=== PATIENT | female | born 1955 | race Caucasian/White ===

== ENCOUNTER → 2024-06-02 13:51 | Outpatient (REF) | payer MEDICARE, OTHER, SELFPAY | LOC: HWRAD 13:51 | PROVIDERS: ATTENDING PHYSICIAN Orthopaedic Surgery; FAMILY PHYSICIAN Nurse Practitioner | DX: M25.512 Pain in left shoulder (principal) | CPT/HCPCS: 73200 ==

== ENCOUNTER → 2024-06-03 10:02 | Outpatient (REF) | payer MEDICARE, OTHER, SELFPAY ==
[2024-06-03 12:09] LABS: % Basophils 0.6 % (0-2); % Eosinophils 1.7 % (0-6); % Immature Granulocytes 0.4 % (0-0.5); % Lymphocytes 18.9 % (20.5-51.1); % Monocytes 8.9 % (1.7-9.3); % Neutrophils 69.5 % (42.2-75.2); Absolute Basophils 0.1 10^3/uL (0-0.2); Absolute Eosinophils 0.1 10^3/uL (0-0.7); Absolute Lymphocytes 1.5 10^3/uL (1.2-3.4); Absolute Monocytes 0.7 10^3/uL (0.1-0.6); Absolute Neutrophils 5.7 10^3/uL (1.4-6.5); Hematocrit 33.8 % (37.0-47.0); Hemoglobin 11.6 g/dL (12.0-16.0); Mean Corp Hgb Conc. 34.3 g/dL (33.0-37.0); Mean Corpuscular Hgb 30.2 pg (27.0-31.0); Mean Platelet Volume 11.6 fL (7.4-10.4); Nucleated Red Blood Cells % 0 %; Platelet Count 246 10^3/uL (130-400); Red Blood Cell Count 3.84 10^6/uL (4.20-5.40); White Blood Cell Count 8.1 10^3/uL (4.8-10.8)
[2024-06-03 12:27] LABS: Blood Urea Nitrogen 20 mg/dl (7-17); Calcium 9.6 mg/dl (8.4-10.2); Carbon Dioxide 26 mmol/L (22-30); Chloride 103 mmol/L (98-107); Glucose 114 mg/dl (70-99); Sodium 136 mmol/L (135-145); eGFR > 60.00
== END ==
LOC: HWLAB 10:02
PROVIDERS: ATTENDING PHYSICIAN Orthopaedic Surgery; FAMILY PHYSICIAN Nurse Practitioner
DX: Z01.818 Encounter for other preprocedural examination (principal)
CPT/HCPCS: 80048; 85025; 93005

== ENCOUNTER 2024-06-08 06:24 | Day surgery (SDC) | payer MEDICARE, OTHER, SELFPAY ==
[2024-06-08] VITALS (8 sets, daily range): BP systolic 126–149; BP diastolic 58–72; BMI 26.4
[2024-06-08] MEDS: MOBIC 15 MG PO (08:13)
[2024-06-08] MEDS: TYLENOL 1000 MG PO (08:13)
[2024-06-08] MEDS: NORMOSOL-R 1000 IV (08:14)
== END 2024-06-08 13:20 | disposition home or self-care (01) ==
LOC: SDS 06:24
PROVIDERS: ATTENDING PHYSICIAN Orthopaedic Surgery
DX: S42.252A Displaced fracture of greater tuberosity of left humerus, initial encounter for closed fracture (principal); X58.XXXA Exposure to other specified factors, initial encounter
CPT/HCPCS: 23615; C1713; 73030; 76000

== ENCOUNTER → 2024-08-24 08:54 | Outpatient (REF) | payer MEDICARE, OTHER, SELFPAY | LOC: RAD 08:54 | PROVIDERS: ATTENDING PHYSICIAN Nurse Practitioner | DX: Z00.01 Encounter for general adult medical examination with abnormal findings (principal); I10 Essential (primary) hypertension; E78.2 Mixed hyperlipidemia; R09.89 Other specified symptoms and signs involving the circulatory and respiratory systems | CPT/HCPCS: 93880 ==